=== PATIENT | male | born 1950 | race Caucasian/White ===

== ENCOUNTER 2024-12-03 07:07 | Day surgery (SDC) | payer MEDICARE, BC ==
[~2024-12-03] VITALS: Ht 177.8 cm; Wt 105.2 kg
[2024-12-03] VITALS (12 sets, daily range): BP systolic 139–163; BP diastolic 73–85; PULSE 62–73; RESP 16; TEMP 98.2; O2SAT 91–96
--- NOTE | 2024-12-03 07:52 | RADIOLOGY REPORT ---
CHEST RADIOGRAPH Indication: PRE OP HEART CATH, pain Technique: Frontal and lateral view of the chest was obtained Comparison: None FINDINGS: Lines and Tubes: None Lungs: Clear Pleura: No effusion. No pneumothorax. Cardiomediastinal contours: Unremarkable Bones: Unremarkable IMPRESSION: No evidence of acute disease.
[2024-12-03] MEDS ORDERED: LACT1CAP26 PO (08:03)
[2024-12-03] MEDS ORDERED: MECO10005 PO (08:03)
[2024-12-03] MEDS ORDERED: FERR236T3 PO (08:03)
[2024-12-03] MEDS ORDERED: FOLI1TAB27 PO (08:03)
[2024-12-03] MEDS ORDERED: LOSA25TA41 PO (08:03)
[2024-12-03] MEDS ORDERED: CHOL200074 PO (08:03)
[2024-12-03] MEDS ORDERED: ASPI81TA52 PO (08:03)
[2024-12-03] MEDS ORDERED: MULT-1085 PO (08:03)
[2024-12-03] MEDS ORDERED: EZET10TA48 PO (08:03)
[2024-12-03] MEDS ORDERED: AMLO5TAB16 PO (08:03)
[2024-12-03] MEDS ORDERED: CARV6.253 PO (08:03)
--- NOTE | 2024-12-03 08:10 | ELECTROCARDIOGRAPH REPORT ---
[facility] Test Date: 2024-12-03 Test Time: 08:08:48 Pat Name: JUSTO OWENS Department: [facility] Patient ID: [id number] Room: Gender: M Dip Stand Loader: ELIEL : 1950 Requested By: CLAIR DEWITT Order Number: [id number] Reading MD: Dr. VALERY Garland Measurements Intervals [place] Rate: 67 P: 7 MI: 143 QRS: -33 QRSD: 111 T: 29 QT: 418 QTc: 442 Interpretive Statements Sinus rhythm Abnormal R-wave progression, early transition Inferior infarct, old Electronically Signed On 12-05-2024 20:17:[address] VALERY Garland Please click the below link to view image of tracing.
[2024-12-03 08:11] LABS: MEAN PLATELET VOLUME 8.3 FL (7.4-10.4); RED CELL DISTRIBUTION WIDTH 13.8 % (11.5-14.5)
[2024-12-03 08:21] LABS: CREATININE 0.53 MG/DL (0.60-1.10); TOTAL CARBON DIOXIDE 27.6 MMOL/L (24-32); eCRCL 124 ML/MIN; eGFR > 90 ML/MIN
[2024-12-03 08:25] LABS: APTT 27 SECONDS (22-32); INR 1.0 INR
[2024-12-03] MEDS ORDERED: LIDOcaine 1% (10mg/ml) 2ml vial ONE (08:59)
[2024-12-03] MEDS ORDERED: midazolam 1 mg/ML 2ml injection ONE (08:59)
[2024-12-03] MEDS ORDERED: verapamil 2.5 mg/ml inj IV ONE (08:59)
[2024-12-03] MEDS ORDERED: fentaNYL/PF 50MCG/1 ML 2ML syringe ONE (09:00)
[2024-12-03] MEDS ORDERED: iohexol 350 MG/ML 50ML vial IV ONE (09:00)
[2024-12-03] MEDS ORDERED: nitroGLYCERIN 500mcg/5mL D5W 0 ML IV ONE (09:00)
[2024-12-03] MEDS ORDERED: heparin 1,000unit/ml 10ml vial 0 ML ONE (09:00)
[2024-12-03] MEDS ORDERED: LIDOcaine 1% 30ml preserv. free vial ONE (09:22)
[2024-12-03] MEDS ORDERED: HYDROcodone/acetaminophen 10/325mg tab PO PRN (11:30)
[2024-12-03] MEDS ORDERED: HYDROcodone/acetaminophen 5mg/325mg tablet PO PRN (11:30)
[2024-12-03] MEDS ORDERED: OXAZEpam 15mg capsule PO PRN (11:30)
[2024-12-03] MEDS ORDERED: ondansetron/PF 4mg/2ml inj IV PRN (11:30)
[2024-12-03] MEDS ORDERED: normal saline 1000ml 1,000 ML IV SCH (11:30)
--- NOTE | 2024-12-04 08:07 | CARDIOLOGY REPORT ---
DATE OF SERVICE: 12/03/2024 DICTATING PHYSICIAN: Emilio Davison MD PROCEDURES: * Left heart catheterization. * Left ventriculography. * Selective left and right coronary arteriography. * Conscious sedation administration, 30 minutes. * Right iliofemoral arteriogram, Angio-Seal application. BRIEF HISTORY AND INDICATION: A 74-year-old male status post left circumflex stent in 2014, left anterior descending stent in 2021, hypertensive, obese, requires left total knee arthroplasty. He has remote deep vein thrombosis. He had an abnormal nuclear stress test, inferior lateral segments of myocardium. He is to undergo diagnostic coronary angiography. Risks, benefits, and alternatives were discussed with him and his . Risks included, but not restricted to , stroke, myocardial infarction, renal failure, neurologic or vascular complications, bleeding complications, allergic reaction, intervention as may be needed. TECHNIQUE: Following usual sterile preparation and draping, right groin was infiltrated with 10 mL of 1% lidocaine anesthetic. Conscious sedation was achieved with 2 mg Versed and 75 mcg of fentanyl. Selective left and right coronary arteriography and multiple junctional obliquities were performed with 6-Latvian femoral left 4, right 4 Sis-shaped catheters. Left ventriculography in the right anterior oblique projection was performed with a 6-[place] Sis-shaped catheter. Catheter exchanges were performed under fluoroscopic guidance with J-tip guidewire lead. A termination right iliofemoral arteriogram was performed. Angio-Seal was applied in the lab director. Hemostasis was obtained. There were no complications. A 90 mL of Omnipaque 350 contrast was administered. Fluoroscopy time was 3.5 minutes. Radiation exposure dose 6951 cGy/cm2. FINDINGS: 5 feet 10 inches, 231 pounds, 74-year-old male. AO 115/50, LV 115/0-10. LEFT VENTRICULOGRAM: Normal contractility. Ejection fraction is 66%. No mitral regurgitation. There is a small inferobasal diverticulum. There is calcification of the left main coronary, left anterior descending, left circumflex and right coronary arteries. Calcification is noted of the entire length of the descending aorta into the iliac arteries. Left anterior descending has serial proximal and mid 40% narrowings. The anterior descending in the distal two-thirds has diffuse cholesterol, narrowings of 20%. Anterior descending wraps around the apex of the myocardium. There is a large diagonal with 40% narrowing proximally. It arises at the level of the first septal. Left circumflex has 40% narrowing and provides an obtuse marginal. Stent is smooth within the left anterior descending midportion. Right coronary scattered 20% narrowings. A 40% in the proximal to mid portion. Posterior descending reaches the apex of the myocardium. It provides a left atrial branch. RESULTS: * Heavy calcification in the left main coronary, left anterior descending, left circumflex, and right coronary arteries. * Normal left ventriculogram. Ejection fraction is 66%, inferobasal diverticulum. * Left anterior descending and left circumflex stents are smooth. * A 40% proximal and mid left anterior descending. * A 40% proximal diagonal. * A 40% left circumflex proximally. * A 40% proximal to mid right coronary. COMMENT: The patient has moderate calcific disease throughout. There is no cardiac contraindication to proceed with surgery as is needed. There is calcific outline of the thoracic, abdominal and iliac arteries. Emilio Davison MD TID: [id number] RECEIPT: [id number] TR/JANE/VAMSHI cc: Avery Simpson MD, ,
== END 2024-12-03 17:10 | disposition home or self-care (01) ==
LOC: SSTAY O 07:07
PROVIDERS: ATTEND Internal Medicine Cardiovascular Disease
DX: I25.10 Atherosclerotic heart disease of native coronary artery without angina pectoris (principal); Z79.01 Long term (current) use of anticoagulants; Z79.899 Other long term (current) drug therapy; Z79.82 Long term (current) use of aspirin; R94.39 Abnormal result of other cardiovascular function study; Z98.890 Other specified postprocedural states
CPT/HCPCS: 36415; 71046; 80048; 85025; 85610; 85730; 93005; 93458; 99152; A6258; C1760; J1644; J2003; J2250; J3010; J7030; Q0163; Q9967; Z7610; 99153; J3490